=== PATIENT | female | born 1970 | race Caucasian/White ===

== ENCOUNTER → 2018-06-22 11:30 | Outpatient (CLI) | payer OTHER, SELFPAY ==
[2018-06-30 12:01] LABS: HPV APTIMA, High Risk Negative (Negative)
[2018-06-30 12:07] LABS: HPV Reflexed? YES, CHARGE PATIENT
--- OUTSIDE RECORDS SUMMARY | 2018-08-09 05:36 | XMS RPT_ITS ---
:1970 Author Organization [facility] Care Team Providers Name Role Phone PAULINA COYNE MD Admitting Unavailable PAULINA COYNE MD Attending Unavailable PAULINA COYNE MD Primary Care Unavailable PAULINA COYNE MD Consulting Unavailable PROVIDER, UNKNOWN Consulting Unavailable PROVIDER, UNKNOWN Consulting Unavailable PROVIDER, UNKNOWN Consulting Unavailable Vincenzo Herzog Attending Unavailable PROBLEMS PROBLEMS DATE TYPE CONDITION / ATTENDING STATUS SOURCE CODE 06/23/2018 Unknown Z12.4 - Vincenzo Herzog Encounter for Community screening for Hospital malignant Repository neoplasm of cervix / Z12.4(ICD-10) 03/24/2018 Admitting Personal PAULINA COYNE Diagnosis history of [facility] blood and Repository blood-forming organs and certain disorders involving the immune mechanism / Z862(ICD-10) 03/24/2018 Principle Personal PAULINA COYNE Active Rohan Ware Diagnosis history of [facility] blood and Repository blood-forming organs and certain disorders involving the immune mechanism / Z862(ICD-10) PROCEDURES PROCEDURES No Procedure Records FoundRESULTS RESULTS PAP IG W/REFLEX HR Collected: 06/22/2018 Status: F Source: [place] HPV APTIMA 11:30 AM [facility] REPOSITORY Order Comment: CYTOLOGY INFORMATION: - CLINICAL INFORMATION: - DATE LMP/MENOPAUSE: 05-25-18 LMP - COLLECTION VIAL: Thin Prep Vial - [employer] SOURCE: CERVICAL/ENDOCERVICAL - COLLECTION TECHNIQUE: BRUSH/SPATULA Specimen Comment: [id number] Specimen Comment: No. of containers..01 ThinPrep Vial TYPE CODE TESTS RESULT OUT OF REFERENCE UNITS RANGE LAB L7400.0800 . High DIAGN Comment Result Comment: EPITHELIAL CELL ABNORMALITY. ATYPICAL SQUAMOUS CELLS OF UNDETERMINED SIGNIFICANCE. LAB L7400.0900 . Normal ADEQ Comment Result Comment: Satisfactory for evaluation. Endocervical and/or squamous metaplastic cells (endocervical component) are present. LAB L7400.1400 . Normal PERFORM Comment Result Comment: Kelsey Shoemaker, Torpedo Man (ASCP) LAB L7400.1700 . Normal SIGN Comment Result Comment: Jax Dooley MD (Charles), Pathologist LAB L7400.1720 . Normal Path prov. Comment ICD9 Result Comment: R87.610 LAB L7400.2575 . Normal TEST METHOD Comment Result Comment: This liquid based ThinPrep(R) pap test was screened with the use of an image guided system. LAB L7400.2600 . Normal . COMM LAB L7400.2700 . Normal PAPSMR Comment Result Comment: The Pap smear is a screening test designed to aid in the detection of premalignant and malignant conditions of the uterine cervix. It is not a diagnostic procedure and should not be used as the sole means of detecting cervical cancer. Both false-positive and false-negative reports do occur. LAB L7400.2760 Negative Normal HPV APTIMA, Negative HR Result Comment: This test detects fourteen high-risk HPV types (16/18/31/33/35/39/45/ 51/52/56/58/59/66/68) without differentiation. Performed at: [address] [place] [id number] Real Estate Professor: Mona Franklin MD, Phone: [phone] Performed at: [address] [id number] Real Estate Professor: Jeana Klein MD, Phone: [phone] Performed at: [address] [id number] Real Estate Professor: Jeana Klein MD, Phone: [phone] LAB L7400.4580 . Normal HPV RFLX Comment Result Comment: See below for HPV testing results. Performed By: #### L7400.0357 #### [facility] (refer to report for specific site) refer to report for address and phone number CBC Collected: 03/24/2018 Status: F Source: ROHAN WARE 2:23 PM [facility] REPOSITORY TYPE CODE TESTS RESULT OUT OF RANGE REFERENCE UNITS LAB CBC(LOINC) CBC Result Comment: CBC-COMPLETE BLOOD COUNT LAB WBC(LOINC) 4.5 - 10.8 x 10EE3/UL WBC 9.6 LAB RBC(LOINC) 4.10 - x 10EE6/UL 5.30 RBC 4.69 LAB HEMOGLOBIN(LOINC) 12.0 - g/dl 16.0 HEMOGLOBIN 14.8 LAB HEMATOCRIT(LOINC) 34.0 - % 46.0 HEMATOCRIT 43.5 LAB MCV(LOINC) 80 - 99 fl MCV 93 LAB MCH(LOINC) 27 - 33 pg MCH 32 LAB MCHC(LOINC) 32 - 36 X10 3 MCHC 34 LAB RDW/CV(LOINC) 12.0 - % 15.6 RDW/CV 12.9 LAB PLATELET(LOINC) 150 - 450 x10EE3/UL PLATELET 326 LAB MPV(LOINC) 6.6 - 10.5 fl MPV 7.6 Result Comment: AUTOMATED DIFFERENTIAL LAB NEUT %(LOINC) 46.0 - 76.0 % NEUT % 63.9 LAB LYMPH %(LOINC) 20.0 - 45.0 % LYMPH % 25.7 LAB MONOS %(LOINC) 0.0 - 10.0 % MONOS % 6.7 LAB EO %(LOINC) 0.0 - 7.0 % EO % 3.2 LAB BASO %(LOINC) 0.0 - 2.0 % BASO % 0.5 LAB Lymph #(LOINC) 0.80 - 2.80 x10EE3/U L Lymph # 2.50 LAB Neut #(LOINC) 1.50 - 7.10 x10EE3/U L Neut # 6.10 LAB [place] #(LOINC) 0.20 - 1.00 x10EE3/U L [place] # 0.60 LAB EO #(LOINC) 0.00 - 0.50 x10EE3/U L EO # 0.30 LAB Baso #(LOINC) 0.00 - 0.10 x10EE3/U L Baso # 0.00 LAB MANUAL DIFF(LOINC) MANUAL DIFF N/A LAB MORPHOLOGY(LOINC ) MORPHOLOGY N/A Result Comment: {CD] Performed By: #### [id number] #### [facility],[address] [place] [id number] ALLERGIES ALLERGIES DATE TYPE / CODE NAME / CODE REACTION SEVERITY SOURCE 05/13/2017 Drug sulfamethoxa Other Unknown [facility]/4160 zole/[id number] Hospital 33685(SNOMED 827(RXNORM) Repository CT) 05/13/2017 Drug trimethoprim Other Unknown [facility] Allergy/4160 /[id number]( Hospital 85405(SNOMED RXNORM) Repository CT) ENCOUNTERS ENCOUNTERS ADMIT/DISCHARGE ACCOUNT ADMITTING ENCOUNTER LOCATION SOURCE NUMBER CLASS 06/22/2018 [id number] Ambulatory [facility] [address] ing:LABSPEC Repository 03/24/2018/ [id number] PAULINA COYNE Ambulatory [address] Repository PAYERS PAYERS ENCOUNTER GUARANTOR PAYER SUBSCRIBER SOURCE 06/22/2018 ADRIENNE Primary ADRIENNE [facility] [id number] [place] Insurance:ALIERACAREP MILLERDOB: [facility] Number: [id number] Hospital [address]Flo: [phone] [id number] Repository [phone] () Date:[id number] [id number] [place] [address]GI: 06/22/2018 Secondary NOT GIVENUNK [facility] Insurance:SELF PAY [facility] Number: Effective Repository Date:2018-06-22 03/24/2018 ADRIENNE E Primary ADRIENNE E [facility] MILLERDOB: Insurance:ALIERA MILLERDOB: [facility] [id number] [facility] [id number] [facility] [employer] Number: [address] [place] [id number] [facility] [address]Vwu: Date:Plan Name: [id number] ()
== END ==
PROVIDERS: PCP Family Medicine; Visit Provider Obstetrics & Gynecology
DX: Z12.4 Encounter for screening for malignant neoplasm of cervix (principal)
CPT/HCPCS: 87624; 88175; G0145

== ENCOUNTER → 2019-07-14 08:33 | Outpatient (CLI) | payer OTHER, SELFPAY ==
[2019-07-18 14:05] LABS: HPV Reflexed? NOT INDICATED
== END ==
PROVIDERS: PCP Family Medicine; Visit Provider Obstetrics & Gynecology
DX: Z12.4 Encounter for screening for malignant neoplasm of cervix (principal)
CPT/HCPCS: 88175; G0145

== ENCOUNTER → 2020-12-04 | Outpatient (CLI) | payer OTHER, SELFPAY ==
[2017-05-18 06:31] VITALS: BMI 31.4
[2020-12-08 15:18] LABS: HPV Reflexed? NOT INDICATED
== END | disposition home or self-care (01) ==
LOC: LABSPEC 12-05 09:47
PROVIDERS: PCP Family Medicine; Visit Provider Obstetrics & Gynecology
DX: Z12.4 Encounter for screening for malignant neoplasm of cervix (principal)
CPT/HCPCS: 88175; G0145